=== PATIENT | female | born 1985 | race Caucasian/White ===

== ENCOUNTER 2016-11-05 13:05 | Emergency (ER) | payer SELFPAY ==
[~2016-11-05] VITALS: Ht 162.6 cm; Wt 61.4 kg
[2016-11-05 13:07] VITALS: BP 112/82; PULSE 133; RESP 24; TEMP 98.3; O2SAT 96
--- NOTE | 2016-11-05 14:46 | PD ---
HPI Chief Complaint: Pain: Acute or Chronic Time Seen by Provider: 14:46 Travel History International Travel<30 days: No Contact w/Intl Traveler<30days: No Traveled to known affect area: No History of Present Illness HPI 31-year-old female with history of lupus, IVDA presents to the ED for evaluation of 3 day history of right shoulder and scapular pain. Onset after recent overuse, unloading her car and working 2 jobs. Exacerbated by movement. She endorses limitations to range of motion stating that she has difficulties raising the arm beyond shoulder height secondary to weakness. She denies numbness, tingling of the arm. She denies previous injury to the area. Denies risk of , states that she is currently menstruating. Patient states that she just moved to the area from [place]. 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 Endorses allergy to Toradol. PFSH Past Medical History ?: Not LMP: 11/04/2016 Social History Alcohol Use: No Tobacco Use: Yes Substance Use: Yes Allergies-Medications (Allergen,Severity, Reaction): Coded Allergies: Toradol (Verified Allergy, Unknown, 11/05/16) Reported Meds & Prescriptions Reported Meds & Active Scripts Active Flexeril (Cyclobenzaprine HCl) 10 Mg Tab 10 Mg PO TID Ibuprofen 800 Mg Tab 800 Mg PO Q8H PRN Review of Systems Except as stated in HPI: all other systems reviewed are Neg Physical Exam Exam Limitations: Other: (crying, moaning) Narrative GENERAL: Well-nourished, well-developed dramatic, tearful white female in no acute distress. SKIN: Warm and dry. HEAD: Normocephalic. EYES: No scleral icterus. No injection or drainage. NECK: Supple, trachea midline. No JVD or lymphadenopathy. CARDIOVASCULAR: Regular rate and rhythm without murmurs, gallops, or rubs. RESPIRATORY: Breath sounds equal bilaterally. No accessory muscle use. GASTROINTESTINAL: Abdomen soft, non-tender, nondistended. MUSCULOSKELETAL: No cyanosis, or edema. FOCUSED RIGHT UPPER EXTREMITY EXAM: Tender to palpation along the superior spine of the scapula. Patient is able to abduct the right arm to 90. 5/5 deltoid, bicep, tricep strength. 2+ radial pulse. BACK: Nontender without obvious deformity. No CVA tenderness. Data Data Last Documented VS Vital Signs Date Time Temp Pulse Resp B/P Pulse Ox O2 Delivery O2 Flow Rate FiO2 11/05/16 13:07 98.3 133 24 112/82 96 Room Air Orders Scapula (11/05/16 14:46) Shoulder, Complete (>2vws) (11/05/16 14:46) Ice/Cold Pack (11/05/16 14:46) Acetamin-Hydrocod 325-5 Mg ([place] 5-325 (11/05/16 15:00) MDM Medical Decision Making Medical Screen Exam Complete: Yes Emergency Medical Condition: Yes Differential Diagnosis Musculoskeletal pain versus fracture versus dislocation versus malingering versus lupus flare versus other Narrative Course 31-year-old female with history of IVDA, lupus presents to the ED for evaluation of 3 day history of right scapular and shoulder pain. Onset after recent overuse of moving and working 2 jobs. Exacerbated by movement. No alleviating factors reported. Patient is quite dramatic, moaning loudly, tearful throughout the history taking. Physical exam reveals tenderness to palpation over the right scapula and shoulder, pain with range of motion, strength intact, sensation intact, good distal pulses. On each encounter with the patient I was accompanied by nurse Catherine Ace. Patient was administered 5 mg hydrocodone and ice pack. X-rays reveal no acute bony injury per radiology read. Review of the force reveals that the patient has received several narcotic prescriptions from multiple providers over the last few months. On recheck the patient appears to be sleeping, is lying quietly on the stretcher, ice pack in place. I discussed the results of the x-ray with the patient. I prescribed a short course of anti-inflammatories and muscle relaxers. As I discussed my plan for discharge the patient voiced multiple nonspecific complaints stating that she is dehydrated, needs fluids, her hands are swollen, her vision is impaired and she needs to be admitted to the hospital. The patient admitted she drove herself to the hospital despite this "vision impairment." I suspect this is malingering. She states that she has a primary care provider. I recommended that she follow up on an outpatient basis. She is stable and discharged home. Diagnosis Primary Impression: Musculoskeletal pain of right upper extremity Referrals: Primary Care Physician Patient Instructions: General Instructions, Musculoskeletal Pain (ED) Additional Instructions: Rest, hydrate. Resume normal, gentle activities as tolerated. No strenuous physical activities for the next few days. Take 800 mg ibuprofen as prescribed as needed for body aches. Take Flexeril as needed for muscle spasms. Do not drive or taking Flexeril. Applying ice or heat to areas with sore muscles may help to improve your patient. Do not apply ice/ heat for longer than 20 m/h. Follow-up with your primary care provider this week. Return to the ED for any urgent or emergent medical condition. Med/Other Pt SpecificInfo: Prescription(s) given Scripts Cyclobenzaprine (Flexeril)10 Mg Tab10 Mg PO TID #15 TAB Ref 0 Prov:Morena Foote MD 11/05/16 Ibuprofen 800 Mg [id number] Mg PO Q8H PRN (Pain/Inflammation) #15 TAB Ref 0 Prov:Morena Foote MD 11/05/16 Disposition: 01 DISCHARGE HOME Condition: Stable Yuki Melendrez Nov 05, 2016 14:46
[2016-11-05] MEDS ORDERED: ACETAMINOPHEN/HYDROcodone 325 MG/5 MG TAB PO ONE (15:00)
--- NOTE | 2016-11-05 16:06 | RADRPT ---
EXAM DATE/TIME: 11/05/2016 15:45 [facility] COMPARISON: No previous studies available for comparison. INDICATIONS : Fall. Right shoulder pain. MEDICAL HISTORY : Lupus. SURGICAL HISTORY : None. ENCOUNTER: Initial ACUITY: 1 day PAIN SCORE: 10/10 LOCATION: Right shoulder FINDINGS: Multiple view examination of the right shoulder demonstrates no evidence of fracture or dislocation. The glenohumeral and acromioclavicular joints are maintained. There is normal range of motion betwe en internal and external rotation. Bony mineralization is normal. CONCLUSION: No acute fracture. Jorje Abreu MD on November 05, 2016 at 16:04 Board Certified Radiologist. This report was verified electronically.
--- NOTE | 2016-11-05 16:12 | RADRPT ---
EXAM DATE/TIME: 11/05/2016 15:46 [facility] COMPARISON: No previous studies available for comparison. INDICATIONS : Fall. Right scapular pain. MEDICAL HISTORY : Lupus. SURGICAL HISTORY : None. ENCOUNTER: Initial ACUITY: 1 week PAIN SCORE: 10/10 LOCATION: Right posterior shoulder FINDINGS: Two view examination of the right scapula demonstrates no evidence of fracture. The glenohumeral and acromioclavicular joints are maintained. Bony mineralization is normal. CONCLUSION: No acute fracture. Jorje Abreu MD on November 05, 2016 at 16:10 Board Certified Radiologist. This report was verified electronically.
[2016-11-05] MEDS ORDERED: IBUP800T23 PO (16:37)
[2016-11-05] MEDS ORDERED: CYCL1TAB29 PO (16:37)
== END 2016-11-05 17:10 | disposition home or self-care (01) ==
LOC: NETRI 13:05
DX: M25.511 Pain in right shoulder (principal); Z72.0 Tobacco use; F19.10 Other psychoactive substance abuse, uncomplicated; X50.3XXA Overexertion from repetitive movements, initial encounter; Y93.89 Activity, other specified; Y92.89 Other specified places as the place of occurrence of the external cause; Y99.8 Other external cause status
CPT/HCPCS: 73010; 73030; 99283

== ENCOUNTER 2017-03-30 12:46 | Emergency (ER) | payer OTHER ==
[~2017-03-30] VITALS: Ht 162.6 cm; Wt 67.0 kg
[~2017-03-30 12:46] MED LIST: CYCL1TAB29 PO; IBUP800T23 PO
[2017-03-30 12:48] VITALS: BP 132/85; PULSE 103; RESP 18; TEMP 98.3; O2SAT 97
--- NOTE | 2017-03-30 12:55 | PD ---
Physical Exam Date Seen by Provider: Mar 30, 2017 Time Seen by Provider: 12:53 Data Data Last Documented VS Vital Signs Date Time Temp Pulse Resp B/P Pulse Ox O2 Delivery O2 Flow Rate FiO2 03/30/17 12:48 98.3 103 18 132/85 97 MDM Supervised Visit with [facility]: No Narrative Course 31 YO F, 9 weeks with complaint of intermittent abdominal cramping x 48 hours, constant and sharp since this AM. + N/V.--vaginal bleeding. Vitals reviewed. Patient seen in triage, awaiting bed placement. Yuki Melendrez Mar 30, 2017 12:55
--- NOTE | 2017-03-30 13:14 | PD ---
HPI Chief Complaint: Related Problem Time Seen by Provider: 13:05 Travel History International Travel<30 days: No Contact w/Intl Traveler<30days: No Traveled to known affect area: No History of Present Illness HPI This is a 31-year-old female who presents for evaluation of abdominal cramping. She is , last menstrual. Was January 18. She reports that throughout her she's had some cramping and nausea. She reports over the past 48 hours the cramping has been more persistent and worse. She has been having some sharp pelvic pains as well. She reports the last week she had 3 days of vaginal spotting, none since. Denies fevers or chills, flank pain, dysuria, increased urinary frequency or hesitancy. She is currently in the process of establishing care with [facility]. Her first appointment is April 14. She has no other complaints at this time. PFSH Past Medical History ?: Social History Alcohol Use: No Tobacco Use: Yes Substance Use: Yes Allergies-Medications (Allergen,Severity, Reaction): Coded Allergies: Tramadol (Verified Allergy, Unknown, 03/30/17) Vancomycin (Verified Allergy, Unknown, 03/30/17) Reported Meds & Prescriptions Reported Meds & Active Scripts Active Flexeril (Cyclobenzaprine HCl) 10 Mg Tab 10 Mg PO TID Ibuprofen 800 Mg Tab 800 Mg PO Q8H PRN Review of Systems Except as stated in HPI: all other systems reviewed are Neg Physical Exam Narrative GENERAL: Well-developed well-nourished female in no acute distress SKIN: Warm and dry. HEAD: Atraumatic. Normocephalic. EYES: Pupils equal and round. No scleral icterus. No injection or drainage. ENT: No nasal bleeding or discharge. Mucous membranes pink and moist. NECK: Trachea midline. No JVD. CARDIOVASCULAR: Regular rate and rhythm. No murmur appreciated. RESPIRATORY: No accessory muscle use. Clear to auscultation. Breath sounds equal bilaterally. GASTROINTESTINAL: Abdomen soft, tenderness to palpation in the lower quadrants without guarding. No CVA tenderness. MUSCULOSKELETAL: No obvious deformities. No edema. NEUROLOGICAL: Awake and alert. No obvious cranial nerve deficits. Motor grossly within normal limits. Normal speech. PSYCHIATRIC: Appropriate mood and affect; insight and judgment normal. Data Data Last Documented VS Vital Signs Date Time Temp Pulse Resp B/P Pulse Ox O2 Delivery O2 Flow Rate FiO2 03/30/17 17:07 77 15 118/67 98 03/30/17 14:20 Room Air 03/30/17 12:48 98.3 Orders Beta Hcg (Quant/Titer) (03/30/17 13:10) Complete Blood Count With Diff (03/30/17 13:10) Comprehensive Metabolic Panel (03/30/17 13:10) Complete Rh (03/30/17 13:10) Us Pelvis (Ques Pr/Ect)W Trans (03/30/17 ) Urinalysis - C+S If Indicated (03/30/17 13:10) Ed Urine Pregnancytest Poc (03/30/17 13:10) Iv Access Insert/Monitor (03/30/17 13:10) Ondansetron Inj (Zofran Inj) (03/30/17 13:15) Rhogam Only (03/30/17 14:09) Labs Laboratory Tests Test 03/30/17 03/30/17 13:30 15:07 White Blood Count 9.2 TH/MM3 Red Blood Count 4.48 MIL/MM3 Hemoglobin 13.1 GM/DL Hematocrit 38.5 % Mean Corpuscular Volume 85.9 FL Mean Corpuscular Hemoglobin 29.3 PG Mean Corpuscular Hemoglobin 34.0 % Concent Red Cell Distribution Width 14.2 % Platelet Count 339 TH/MM3 Mean Platelet Volume 7.7 FL Neutrophils (%) (Auto) 65.3 % Lymphocytes (%) (Auto) 22.5 % Monocytes (%) (Auto) 7.4 % Eosinophils (%) (Auto) 4.2 % Basophils (%) (Auto) 0.6 % Neutrophils # (Auto) 6.0 TH/MM3 Lymphocytes # (Auto) 2.1 TH/MM3 Monocytes # (Auto) 0.7 TH/MM3 Eosinophils # (Auto) 0.4 TH/MM3 Basophils # (Auto) 0.1 TH/MM3 CBC Comment DIFF FINAL Differential Comment Urine Color YELLOW Urine Turbidity CLEAR Urine pH 6.5 Urine Specific [place] 1.013 Urine Protein NEG mg/dL Urine Glucose (UA) NEG mg/dL Urine Ketones NEG mg/dL Urine Occult Blood NEG Urine Nitrite NEG Urine Bilirubin NEG Urine Urobilinogen LESS THAN 2.0 MG/DL Urine Leukocyte Esterase NEG Urine WBC LESS THAN 1 /hpf Urine Transitional Epithelial <1 /hpf Cells Urine Mucus FEW /lpf Microscopic Urinalysis Comment CULT NOT INDICATED Sodium Level 138 MEQ/L Potassium Level 3.8 MEQ/L Chloride Level 106 MEQ/L Carbon Dioxide Level 24.6 MEQ/L Anion Gap 7 MEQ/L Blood Urea Nitrogen 7 MG/DL Creatinine 0.66 MG/DL Estimat Glomerular Filtration 106 ML/MIN Rate Random Glucose 100 MG/DL Calcium Level 9.1 MG/DL Total Bilirubin 0.3 MG/DL Aspartate Amino Transf 19 U/L (AST/SGOT) Alanine Aminotransferase 22 U/L (ALT/SGPT) Alkaline Phosphatase 61 U/L Total Protein 7.5 GM/DL Albumin 3.9 GM/DL Human Chorionic Gonadotropin, 07683 MIU/ML Quant Blood Type O NEGATIVE Rho(D) Type NEGATIVE Blood Bank Comment MDM Medical Decision Making Medical Screen Exam Complete: Yes Emergency Medical Condition: Yes Medical Record Reviewed: Yes Differential Diagnosis Intrauterine , ectopic , cystitis, tubo-ovarian abscess, pelvic inflammatory disease, ovarian cyst, ovarian torsion Narrative Course This is a 31-year-old female whose last menstrual period was January 18 presents with sharp pelvic pain/cramping over the past 48 hours. Plan is for basic lab work, pelvic ultrasound. The patient also had vaginal spotting for 3 days last week. Her blood type is O - and therefore RhoGAM was administered. The patient's lab work is normal. Her ultrasound confirms a normal-appearing and she heard . She was given a copy of her ultrasound results. She is stable for discharge, outpatient follow-up. Diagnosis Primary Impression: Intrauterine Referrals: [facility] Additional Instructions: Follow-up with [facility] service as already scheduled return for any emergent medical conditions. Med/Other Pt SpecificInfo: No Change to Meds Disposition: 01 DISCHARGE HOME Condition: Stable Sal Meza Mar 30, 2017 13:14 Sal Meza Mar 30, 2017 13:14
[2017-03-30] MEDS ORDERED: ONDANSETRON HCL 4 MG/2 ML VIAL IV PUSH ONE (13:15)
[2017-03-30 13:44] LABS: BASOPHIL # 0.1 TH/MM3 (0-0.2); BASOPHIL % 0.6 % (0.0-2.0); EOSINOPHIL # 0.4 TH/MM3 (0-0.4); EOSINOPHIL % 4.2 % (0.0-4.0); HEMATOCRIT 38.5 % (35.0-46.0); HEMO FLAGS DIFF FINAL; LYMPH % 22.5 % (9.0-44.0); LYMPHOCYTE # 2.1 TH/MM3 (1.0-4.8); MEAN CELL VOLUME 85.9 FL (80.0-100.0); MEAN CORPUSCULAR HEMOGLOBIN 29.3 PG (27.0-34.0); MONO % 7.4 % (0.0-8.0); NEUT % 65.3 % (16.0-70.0); PLATELET COUNT 339 TH/MM3 (150-450); RED BLOOD COUNT 4.48 MIL/MM3 (4.00-5.30); RED CELL DISTRIBUTION WIDTH 14.2 % (11.6-17.2); WHITE BLOOD COUNT 9.2 TH/MM3 (4.0-11.0)
[2017-03-30 13:51] LABS: BLOOD, URINE NEG (NEG); GLUCOSE,URINE NEG (NEG); KETONE, URINE NEG (NEG); MUCUS URINE FEW /lpf (OCC); NITRITE,URINE NEG (NEG); PH, URINE 6.5 (5.0-8.5); TRANSITIONAL EPI CELLS, URINE <1 /hpf; URINE COLOR YELLOW (YELLW/STRAW)
[2017-03-30 13:52] LABS: COMMENT (UR) CULT NOT INDICATED; CULTURE IF INDICATED CULT NOT INDICATED
[2017-03-30 14:03] LABS: ALT (GPT) 22 U/L (10-53); ANION GAP 7 MEQ/L (5-15); AST (GOT) 19 U/L (15-37); BICARBONATE 24.6 MEQ/L (21.0-32.0); BLOOD UREA NITROGEN 7 MG/DL (7-18); CHLORIDE 106 MEQ/L (98-107); GLOMERULAR FILTRATION RATE 106 ML/MIN (>89); POTASSIUM 3.8 MEQ/L (3.5-5.1); SODIUM (NA) 138 MEQ/L (136-145)
[2017-03-30 14:20] VITALS: BP 102/61; PULSE 95; RESP 18; O2SAT 98
[2017-03-30 14:24] LABS: ALKALINE PHOSPHATASE 61 U/L (45-117); BETA HCG QUANT 94162 MIU/ML (0-5); TOTAL BILIRUBIN ADULT 0.3 MG/DL (0.2-1.0)
--- NOTE | 2017-03-30 15:41 | RADRPT ---
EXAM DATE/TIME: 03/30/2017 14:53 [facility] COMPARISON: No previous studies available for comparison. INDICATIONS : Pelvic pain. LAB(S): Beta-hC,162 MEDICAL HISTORY : . SURGICAL HISTORY : None. ENCOUNTER: Initial ACUITY: 2 days PAIN SCORE: 8/10 LOCATION: Bilateral pelvis MEASUREMENTS: UTERUS: 11.3 x 6.2 x 5.6 cm ENDOMETRIAL STRIPE: >20 mm RIGHT OVARY: 2.4 x 1.8 x 1.5 cm LEFT OVARY: 3.3 x 2.8 x 2.2 cm CROWN RUMP LENGTH: 2.1 cm = 8 WKS 5 DAYS FHR: 180 BPM FINDINGS: UTERUS: Intrauterine gestation with crown-rump length of 20.9 mm yielding estimated gestational age of 8 week s 5 days. cardiac activity is detected at 180 beats per minute. Small mobility and cysts in the cervix. RIGHT OVARY: Ovary contains no mass or significant cystic lesion. LEFT OVARY: 15 mm cyst involving left ovary MISCELLANEOUS: No free fluid. CONCLUSION: Intrauterine gestation. Mathew Vieyra MD on March 30, 2017 at 15:35 Board Certified Radiologist. This report was verified electronically.
[2017-03-30 17:07] VITALS: BP 118/67
== END 2017-03-30 17:23 | disposition home or self-care (01) ==
LOC: NEPD 12:46
DX: O26.899 Other specified pregnancy related conditions, unspecified trimester (principal); R10.2 Pelvic and perineal pain; O26.859 Spotting complicating pregnancy, unspecified trimester; O36.0990 Maternal care for other rhesus isoimmunization, unspecified trimester, not applicable or unspecified; Z72.0 Tobacco use; Z3A.00 Weeks of gestation of pregnancy not specified
CPT/HCPCS: 76700; 76817; 80053; 81001; 84702; 84703; 85025; 86901; 90384; 96374; 99285; J2405; J2790

== ENCOUNTER → 2017-04-22 | Outpatient (CLI) | payer OTHER ==
[~2017-04-22] MED LIST changes: -CYCL1TAB29 PO; -IBUP800T23 PO; +LEVO75TA3 PO; +TUMS500C CHEW; +ZANT150T2 PO; +ZITHTAB PO
== END ==
LOC: HPND 13:18
PROVIDERS: ATTEND Obstetrics & Gynecology
DX: O99.282 Endocrine, nutritional and metabolic diseases complicating pregnancy, second trimester (principal); M32.9 Systemic lupus erythematosus, unspecified
CPT/HCPCS: 76801

== ENCOUNTER 2017-05-17 11:06 | Emergency (ER) | payer OTHER ==
[~2017-05-17] VITALS: Ht 162.6 cm; Wt 67.1 kg
[~2017-05-17 11:06] MED LIST changes: +PREN1CAP7 PO
[2017-05-17 11:11] VITALS: BP 110/66; PULSE 92; RESP 18; TEMP 98.2; O2SAT 100
[2017-05-17] MEDS ORDERED: SODIUM CHLOR 0.9% 1000 ML INJ 1,000 ML IV SCH (11:34)
[2017-05-17] MEDS ORDERED: ZOLO25TA PO (11:36)
[2017-05-17] MEDS ORDERED: SODIUM CHLORIDE 0.9% FLUSH 10 ML FLUSH IV FLUSH PRN (11:45)
[2017-05-17] MEDS ORDERED: ONDANSETRON HCL 4 MG/2 ML VIAL IV PUSH ONE (12:00)
[2017-05-17 12:07] LABS: BASOPHIL % 0.6 % (0.0-2.0); EOSINOPHIL # 0.3 TH/MM3 (0-0.4); EOSINOPHIL % 3.5 % (0.0-4.0); HEMATOCRIT 35.4 % (35.0-46.0); HEMO FLAGS DIFF FINAL; LYMPH % 19.2 % (9.0-44.0); LYMPHOCYTE # 1.5 TH/MM3 (1.0-4.8); MEAN CELL VOLUME 87.6 FL (80.0-100.0); MEAN CORPUSCULAR HEMOGLOBIN 29.9 PG (27.0-34.0); MEAN CORPUSCULAR HGB CONC 34.2 % (32.0-36.0); MONO % 2.6 % (0.0-8.0); NEUT % 74.1 % (16.0-70.0); PLATELET COUNT 265 TH/MM3 (150-450); RED BLOOD COUNT 4.04 MIL/MM3 (4.00-5.30); RED CELL DISTRIBUTION WIDTH 15.7 % (11.6-17.2)
[2017-05-17 12:10] VITALS: RESP 18; O2SAT 99
[2017-05-17 12:10] LABS: BLOOD, URINE NEG (NEG); KETONE, URINE NEG (NEG); NITRITE,URINE NEG (NEG); PH, URINE 7.5 (5.0-8.5)
[2017-05-17 12:11] LABS: GLUCOSE,URINE 1000 OR GREATER mg/dL (NEG); METHOD OF COLLECTION CLEAN CATCH; URINE COLOR YELLOW (YELLW/STRAW)
[2017-05-17 12:14] LABS: COMMENT (UR) CULT NOT INDICATED; CULTURE IF INDICATED CULT NOT INDICATED; RBC, URINE 0-3 /hpf (0-3); SQUAMOUS EPITHELIAL CELL URINE 0-5 /hpf (0-5); WBC, URINE 0-2 /hpf (0-5)
[2017-05-17 12:16] LABS: CHLORIDE 108 MEQ/L (98-107); POTASSIUM 4.7 MEQ/L (3.5-5.1); SODIUM (NA) 137 MEQ/L (136-145)
[2017-05-17 12:20] LABS: ANION GAP 8 MEQ/L (5-15); BICARBONATE 21.3 MEQ/L (21.0-32.0)
[2017-05-17 12:21] LABS: BLOOD UREA NITROGEN 6 MG/DL (7-18)
[2017-05-17 12:23] LABS: ALT (GPT) 18 U/L (10-53); AST (GOT) 35 U/L (15-37); GLOMERULAR FILTRATION RATE 131 ML/MIN (>89)
[2017-05-17 12:25] LABS: TOTAL BILIRUBIN ADULT 0.5 MG/DL (0.2-1.0)
[2017-05-17 12:26] LABS: ALKALINE PHOSPHATASE 43 U/L (45-117)
--- NOTE | 2017-05-17 12:29 | PD ---
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 Hua, she has had approximately 3 days of lower abdominal pain and dysuria. The patient is known to be 17 weeks . She reports vomiting numerous times this morning associated with nausea. The pain comes and goes. A subjective fever is reported. The patient notes that less than one week prior she underwent a cervical biopsy to rule out cervical cancer. PFSH Past Medical History Depression: Yes Cardiovascular Problems: Yes (HEART VALVE DISEASE) Diminished Hearing: No Thyroid Disease: Yes Influenza Vaccination: Yes ?: LMP: 01/22/17 Social History Alcohol Use: No Tobacco Use: No Substance Use: No Allergies-Medications (Allergen,Severity, Reaction): Coded Allergies: Tramadol (Verified Allergy, Unknown, 05/17/17) Vancomycin (Verified Allergy, Unknown, 05/17/17) Reported Meds & Prescriptions Reported Meds & Active Scripts Active Levothyroxine (Levothyroxine Sodium) 75 Mcg Tab 75 Mcg PO DAILY Citranatal [place] ( W/O Vit A W/ Fe Fumar) 27-1-260 Mg Cap Reported Zoloft (Sertraline HCl) 25 Mg Tab 25 Mg PO DAILY Review of Systems Except as stated in HPI: all other systems reviewed are Neg General / Constitutional: No: Fever Physical Exam Narrative GENERAL: 31 yo F, NAD, WNWD SKIN: Warm and dry. HEAD: Atraumatic. Normocephalic. EYES: Pupils equal and round. No scleral icterus. No injection or drainage. ENT: No nasal bleeding or discharge. Mucous membranes pink and moist. NECK: Trachea midline. No JVD. CARDIOVASCULAR: Regular rate and rhythm. RESPIRATORY: No accessory muscle use. Clear to auscultation. Breath sounds equal bilaterally. GASTROINTESTINAL: +TTP suprapubic abdomen. No RLQ TTP. Soft. Gravid abdomen. MUSCULOSKELETAL: Extremities without clubbing, cyanosis, or edema. No obvious deformities. NEUROLOGICAL: Awake and alert. No obvious cranial nerve deficits. Motor grossly within normal limits. Five out of 5 muscle strength in the arms and legs. Normal speech. PSYCHIATRIC: Appropriate mood and affect; insight and judgment normal. Data Data Last Documented VS Vital Signs Date Time Temp Pulse Resp B/P Pulse Ox O2 Delivery O2 Flow Rate FiO2 05/17/17 12:10 18 99 Room Air 05/17/17 11:11 98.2 92 110/66 Orders Complete Blood Count With Diff (05/17/17 11:34) Comprehensive Metabolic Panel (05/17/17 11:34) Lipase (05/17/17 11:34) Urinalysis - C+S If Indicated (05/17/17 11:34) Iv Access Insert/Monitor (05/17/17 11:34) Ecg Monitoring (05/17/17 11:34) Oximetry (05/17/17 11:34) Sodium Chlor 0.9% 1000 Ml Inj (Ns 1000 M (05/17/17 11:34) Sodium Chloride 0.9% Flush (Ns Flush) (05/17/17 11:45) Ed Poc Ultrasound (05/17/17 11:34) Ondansetron Inj (Zofran Inj) (05/17/17 12:00) Labs Laboratory Tests Test 05/17/17 11:45 White Blood Count 8.0 TH/MM3 Red Blood Count 4.04 MIL/MM3 Hemoglobin 12.1 GM/DL Hematocrit 35.4 % Mean Corpuscular Volume 87.6 FL Mean Corpuscular Hemoglobin 29.9 PG Mean Corpuscular Hemoglobin 34.2 % Concent Red Cell Distribution Width 15.7 % Platelet Count 265 TH/MM3 Mean Platelet Volume 7.6 FL Neutrophils (%) (Auto) 74.1 % Lymphocytes (%) (Auto) 19.2 % Monocytes (%) (Auto) 2.6 % Eosinophils (%) (Auto) 3.5 % Basophils (%) (Auto) 0.6 % Neutrophils # (Auto) 6.0 TH/MM3 Lymphocytes # (Auto) 1.5 TH/MM3 Monocytes # (Auto) 0.2 TH/MM3 Eosinophils # (Auto) 0.3 TH/MM3 Basophils # (Auto) 0.0 TH/MM3 CBC Comment DIFF FINAL Differential Comment Urine Collection Type CLEAN CATCH Urine Color YELLOW Urine Turbidity CLEAR Urine pH 7.5 Urine Specific [place] 1.020 Urine Protein NEG mg/dL Urine Glucose (UA) 1000 OR GREATER mg/dL Urine Ketones NEG mg/dL Urine Occult Blood NEG Urine Nitrite NEG Urine Bilirubin NEG Urine Leukocyte Esterase NEG Urine RBC 0-3 /hpf Urine WBC 0-2 /hpf Urine Squamous Epithelial 0-5 /hpf Cells Microscopic Urinalysis Comment CULT NOT INDICATED Sodium Level 137 MEQ/L Potassium Level 4.7 MEQ/L Chloride Level 108 MEQ/L Carbon Dioxide Level 21.3 MEQ/L Anion Gap 8 MEQ/L Blood Urea Nitrogen 6 MG/DL Creatinine 0.55 MG/DL Estimat Glomerular Filtration 131 ML/MIN Rate Random Glucose 75 MG/DL Calcium Level 8.7 MG/DL Total Bilirubin 0.5 MG/DL Aspartate Amino Transf 35 U/L (AST/SGOT) Alanine Aminotransferase 18 U/L (ALT/SGPT) Alkaline Phosphatase 43 U/L Total Protein 7.0 GM/DL Albumin 3.4 GM/DL Lipase 106 U/L [facility] Medical Decision Making Medical Screen Exam Complete: Yes Emergency Medical Condition: Yes Medical Record Reviewed: Yes Differential Diagnosis IUP, UTI, ectopic , ov torsion, appendicitis, TOA, cervicitis, BV, Trichomoniasis, ov cyst, hernia, mittelschmerz, pain from menstruation Narrative Course CBC & BMP Diagram 05/17/17 11:45 LFTs and lipase normal Urinalysis no UTI Transabdominal ultrasound reveals intrauterine with heart rate of approximately 160, which patient was quite relieved to observe The patient is resting comfortably and feels better, is alert and in no distress. The patients results and examination findings were discussed. The repeat examination is unremarkable and benign. The history, exam, diagnostic testing, and current condition do not suggest any significant pathology to warrant further testing, continued ED treatment, admission, or surgical evaluation at this point. The vital signs have been stable. The patient does not have uncontrollable pain, intractable vomiting, or other significant symptoms. The patient's condition is stable and appropriate for discharge. The patient will pursue further outpatient evaluation with a primary care physician or other designated or consulting physician as indicated in the discharge instructions. The patient expressed understanding and was agreeable with this plan. Diagnosis Primary Impression: Intrauterine Additional Impression: Abdominal pain Qualified Code: R10.9 - Abdominal pain, unspecified abdominal location Referrals: Osmar Hua MD 2 days Additional Instructions: PLEASE RETURN TO ER IF FEVER, VOMITING OR PAIN PERSISTS. PLEASE BE SURE TO FOLLOW UP WITH DR HUA WITHIN THE NEXT TWO DAYS. PLEASE DO NOT HESITATE TO RETURN TO ER FOR ANY REASON YOU CONSIDER NECESSARY. Disposition: 01 DISCHARGE HOME Condition: Stable Manjinder Belcher MD May 17, 2017 12:29
[2017-05-17 12:56] VITALS: BP 99/58; PULSE 70; RESP 16; O2SAT 100
[2017-06-28] MEDS ORDERED: ZITHTAB PO (16:16)
[2017-07-19] MEDS ORDERED: MOME17I EACH NARE (10:51)
[2017-07-19] MEDS ORDERED: ZOLO25TA PO (10:53)
== END 2017-05-17 13:20 | disposition home or self-care (01) ==
LOC: PHED 11:06
DX: O26.892 Other specified pregnancy related conditions, second trimester (principal); O21.9 Vomiting of pregnancy, unspecified; Z3A.17 17 weeks gestation of pregnancy
CPT/HCPCS: 80053; 81001; 83690; 85025; 96361; 96374; 99285; J2405; J7030

== ENCOUNTER → 2017-05-26 | Outpatient (CLI) | payer OTHER ==
[~2017-05-26] MED LIST changes: +MOME17I EACH NARE; -PREN1CAP7 PO; -TUMS500C CHEW; -ZANT150T2 PO; +ZOLO25TA PO
== END ==
LOC: HPND 07:54
PROVIDERS: ATTEND Obstetrics & Gynecology
DX: O99.282 Endocrine, nutritional and metabolic diseases complicating pregnancy, second trimester (principal); O99.89 Other specified diseases and conditions complicating pregnancy, childbirth and the puerperium; O26.892 Other specified pregnancy related conditions, second trimester; M32.9 Systemic lupus erythematosus, unspecified; Z3A.17 17 weeks gestation of pregnancy
CPT/HCPCS: 76811

== ENCOUNTER → 2017-06-09 | Outpatient (CLI) | payer OTHER | LOC: HPND 09:06 | PROVIDERS: ATTEND Obstetrics & Gynecology | DX: O99.89 Other specified diseases and conditions complicating pregnancy, childbirth and the puerperium (principal); M32.9 Systemic lupus erythematosus, unspecified; O99.280 Endocrine, nutritional and metabolic diseases complicating pregnancy, unspecified trimester; Z3A.00 Weeks of gestation of pregnancy not specified | CPT/HCPCS: 76815 ==

== ENCOUNTER → 2017-06-22 | Outpatient (CLI) | payer OTHER | LOC: HPND 13:38 | PROVIDERS: ATTEND Obstetrics & Gynecology | DX: O99.282 Endocrine, nutritional and metabolic diseases complicating pregnancy, second trimester (principal); O99.89 Other specified diseases and conditions complicating pregnancy, childbirth and the puerperium; M32.9 Systemic lupus erythematosus, unspecified | CPT/HCPCS: 76816 ==

== ENCOUNTER → 2017-07-19 | Outpatient (CLI) | payer OTHER | LOC: HPND 08:58 | PROVIDERS: ATTEND Obstetrics & Gynecology | DX: O99.282 Endocrine, nutritional and metabolic diseases complicating pregnancy, second trimester (principal); O99.89 Other specified diseases and conditions complicating pregnancy, childbirth and the puerperium; M32.9 Systemic lupus erythematosus, unspecified | CPT/HCPCS: 76816 ==

== ENCOUNTER → 2017-08-11 | Outpatient (CLI) | payer OTHER | LOC: HPND 11:12 | PROVIDERS: ATTEND Obstetrics & Gynecology | DX: O35.8XX0 Maternal care for other (suspected) fetal abnormality and damage, not applicable or unspecified (principal); O99.89 Other specified diseases and conditions complicating pregnancy, childbirth and the puerperium; M32.9 Systemic lupus erythematosus, unspecified; Z3A.28 28 weeks gestation of pregnancy | CPT/HCPCS: 76816 ==

== ENCOUNTER → 2017-08-18 | Outpatient (CLI) | payer OTHER ==
[~2017-08-18] MED LIST changes: -ZITHTAB PO
== END ==
LOC: HPND 08:14
PROVIDERS: ATTEND Obstetrics & Gynecology
DX: O35.0XX0 Maternal care for (suspected) central nervous system malformation in fetus, not applicable or unspecified (principal); O35.8XX0 Maternal care for other (suspected) fetal abnormality and damage, not applicable or unspecified
CPT/HCPCS: 36415; 59000; 76815; 76946; 86850; 86900; 86901; 90384; 96372; J2790

== ENCOUNTER 2017-08-24 12:28 | Emergency (ER) | payer OTHER ==
--- NOTE | 2017-08-24 14:18 | PD ---
Allergies-Medications (Allergen,Severity, Reaction): Coded Allergies: tramadol (Unverified Allergy, Unknown, 07/19/17) vancomycin (Unverified Allergy, Unknown, 07/19/17) Home Meds Active Scripts Sertraline (Zoloft) 25 Mg Tab, 50 MG PO DAILY for Anxiety, #30 TAB 0 Refills Prov:Osmar Hua MD 08/19/17 Levothyroxine (Levothyroxine) 75 Mcg Tab, 75 MCG PO DAILY for Thyroid, #30 TAB 3 Refills Prov:Osmar Hua MD 08/19/17 Mometasone Nasal [place] (Nasonex Nasal [place]) 50 Mcg/Act Naspr, 2 SPRAY EACH NARE DAILY for Allergy Management, #1 BOTTLE 0 Refills Prov:Osmar Hua MD 07/19/17 W/O Vit A W/ Fe Fumar (Citranatal [place]) 27-1-260 Mg Cap Prov:Osmar Hua MD 04/14/17 Physical Exam Narrative GENERAL: Well-nourished, well-developed patient. SKIN: Warm and dry. HEAD: Normocephalic and atraumatic. EYES: No scleral icterus. No injection or drainage. ENT: No nasal drainage noted. Mucous membranes pink. Airway patent. NECK: Supple, trachea midline. No JVD. CARDIOVASCULAR: Regular rate and rhythm without murmurs, gallops, or rubs. RESPIRATORY: Breath sounds equal bilaterally. No accessory muscle use. BREASTS: Bilateral exam showed no masses , no retractions, no nipple discharge. ABDOMEN/GI: Abdomen soft, non-tender, bowel sounds present, no rebound, no guarding Gravid to [-] weeks size Fundal Height: [-] GENITOURINARY: External Genitalia: intact and normal in appearance BUS glands: [-] Cervix: [-] Dilatation: [-] Effacement: [-] Station: [-] Presentation: [-] Membranes: [intact or ruptured] Uterine Contractions: [-] FHT's: Category: [-] Baseline: [-] Reactive: [-] Variability: [-] Decels: [-] EXTREMITIES: No cyanosis or edema. BACK: Nontender without obvious deformity. No CVA tenderness. NEUROLOGICAL: Awake and alert. Motor and sensory grossly within normal limits. Five out of 5 muscle strength in all muscle groups. Normal speech. Data Data Orders Orders Vital Signs (Adult) .ON ADMISSION (08/24/17 14:14) ^ Labor Status (08/24/17 14:14) Urinalysis - C+S If Indicated (08/24/17 14:14) ^ Non Stress Test (08/24/17 14:14) ^ Hydration (08/24/17 14:14) Fibronectin (08/24/17 14:14) Wet Prep Profile (08/24/17 14:14) Gc And Chlamydia Pcr (08/24/17 14:14) Kiran Weldon MD R1 Aug 24, 2017 14:18
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
[2017-08-24 16:33] LABS: BLOOD, URINE NEG (NEG); COMMENT (UR) CULT NOT INDICATED; CULTURE IF INDICATED CULT NOT INDICATED; GLUCOSE,URINE NEG (NEG); KETONE, URINE NEG (NEG); MUCUS URINE FEW /lpf (OCC); NITRITE,URINE NEG (NEG); PH, URINE 6.5 (5.0-8.5); SQUAMOUS EPITHELIAL CELL URINE <1 /hpf (0-5); URINE COLOR YELLOW (YELLW/STRAW)
[2017-08-24 18:35] LABS: CHLAMYDIA PCR NOT DETECTED (NOT DETECT); NEISSERIA PCR NOT DETECTED (NOT DETECT)
== END 2017-08-24 17:21 | disposition home or self-care (01) ==
LOC: HOBED 12:28
DX: O26.893 Other specified pregnancy related conditions, third trimester (principal); N89.8 Other specified noninflammatory disorders of vagina; M54.9 Dorsalgia, unspecified; R10.30 Lower abdominal pain, unspecified; M32.9 Systemic lupus erythematosus, unspecified; E03.9 Hypothyroidism, unspecified; Z88.5 Allergy status to narcotic agent; Z79.899 Other long term (current) drug therapy; Z3A.30 30 weeks gestation of pregnancy
CPT/HCPCS: 81001; 82731; 87210; 87491; 87591; 99283

== ENCOUNTER 2017-09-04 18:26 | Emergency (ER) | payer OTHER ==
--- NOTE | 2017-09-04 18:55 | PD ---
HPI Chief Complaint Leaking Date Seen: Sep 04, 2017 Time Seen: 18:51 Travel History International Travel<30 Days: No Contact w/Intl Traveler<30Days: No Known Affected Area: No History of Present Illness HPI Primigravida at 32 weeks gestation who reports that for thoroughly suctioned and she notes that her underpants were wet. She wasn't sure if she had leaked urine. No bleeding or contractions. No vaginal discharge History Past Medical History Narrative Medical The patient has lupus Prior hospitalization in September 2016 for bacterial endocarditis complicating pneumonia Obstetric History Obstetric History [facility]igravida [facility], the fetus of this is affected by hydrocephalus and aortic stenosis. The plan is for her to deliver at [facility]. Past Surgical History Narrative Surgical None Family History Family History: Negative Social History Alcohol Use: No Tobacco Use: No Substance Abuse: No Allergies-Medications (Allergen,Severity, Reaction): Coded Allergies: tramadol (Unverified Allergy, Unknown, 07/19/17) vancomycin (Unverified Allergy, Unknown, 07/19/17) Home Meds Active Scripts Sertraline (Zoloft) 25 Mg Tab, 50 MG PO DAILY for Anxiety, #30 TAB 0 Refills Prov:Osmar Hua MD 08/19/17 Levothyroxine (Levothyroxine) 75 Mcg Tab, 75 MCG PO DAILY for Thyroid, #30 TAB 3 Refills Prov:Osmar Hua MD 08/19/17 Mometasone Nasal [place] (Nasonex Nasal [place]) 50 Mcg/Act Naspr, 2 SPRAY EACH NARE DAILY for Allergy Management, #1 BOTTLE 0 Refills Prov:Osmar Hua MD 07/19/17 W/O Vit A W/ Fe Fumar (Citranatal [place]) 27-1-260 Mg Cap Prov:Osmar Hua MD 04/14/17 Review of Systems Except as stated in HPI: all other systems reviewed are Neg Physical Exam Narrative GENERAL: Well-nourished, well-developed patient. SKIN: Warm and dry. HEAD: Normocephalic and atraumatic. EYES: No scleral icterus. No injection or drainage. ENT: No nasal drainage noted. Mucous membranes pink. Airway patent. NECK: Supple, trachea midline. No JVD. CARDIOVASCULAR: Regular rate and rhythm without murmurs, gallops, or rubs. RESPIRATORY: Breath sounds equal bilaterally. No accessory muscle use. BREASTS: Bilateral exam showed no masses , no retractions, no nipple discharge. ABDOMEN/GI: Abdomen soft, non-tender, bowel sounds present, no rebound, no guarding Gravid to [-] weeks size Fundal Height: [-] GENITOURINARY: External Genitalia: intact and normal in appearance BUS glands: [-] Cervix: [-] Dilatation: [-] Effacement: [-] Station: [-] Presentation: [-] Membranes: [intact or ruptured] Uterine Contractions: [-] FHT's: Category: [1-] Baseline: [-] Reactive: [-Yes] Variability: [-] Decels: [-] EXTREMITIES: No cyanosis or edema. BACK: Nontender without obvious deformity. No CVA tenderness. NEUROLOGICAL: Awake and alert. Motor and sensory grossly within normal limits. Five out of 5 muscle strength in all muscle groups. Normal speech. MDM Medical Record Reviewed: Yes (yes) Narrative Course / MDM Assessment: 32 week intrauterine , no evidence of ruptured membranes Plan: Follow for routine care Diagnosis Diagnosis: Primary Impression: 32 week prematurity Additional Impression: no evidence of ruptured membranes Disposition: 01 DISCHARGE HOME Condition: Good Finn Atkinson MD Sep 04, 2017 18:55
== END 2017-09-04 19:22 | disposition home or self-care (01) ==
LOC: HOBED 18:26
DX: Z03.71 Encounter for suspected problem with amniotic cavity and membrane ruled out (principal); Z86.2 Personal history of diseases of the blood and blood-forming organs and certain disorders involving the immune mechanism; Z3A.32 32 weeks gestation of pregnancy
CPT/HCPCS: 84112; 99284

== ENCOUNTER 2017-09-22 07:04 | Emergency (ER) | payer OTHER ==
[2017-09-22 07:29] VITALS: BP 111/62; PULSE 89
[2017-09-22] MEDS ORDERED: LACTATED RINGER'S 1000 ML INJ 1,000 ML IV SCH (07:37)
--- NOTE | 2017-09-22 07:40 | PD ---
HPI Chief Complaint vomiting Date Seen: Sep 22, 2017 Time Seen: 07:40 Travel History International Travel<30 Days: No Contact w/Intl Traveler<30Days: No History of Present Illness HPI Patient is a 32 year old at 34 and 5/7 weeks, who to OB ED for nausea, vomiting, and feeling of unwell since early this morning. [facility] Care with [facility]. She denies leakage of fluid, vaginal bleeding, and contractions. She feels baby moving regularly. She denies FAUSTIN/fever/sick contacts/SOB/calf pain/dizziness/ seeing spots. History Past Medical History Narrative Medical degenerative heart disease Obstetric History Obstetric History Fetus evaluated at [facility] for aortic stenosis, hydrocephalus, plan is to monitor Past Surgical History Narrative Surgical None Family History Family History: Negative Social History Alcohol Use: No Tobacco Use: No Substance Abuse: No Allergies-Medications (Allergen,Severity, Reaction): Coded Allergies: tramadol (Unverified Allergy, Unknown, 07/19/17) vancomycin (Unverified Allergy, Unknown, 07/19/17) Home Meds Active Scripts Sertraline (Zoloft) 25 Mg Tab, 50 MG PO DAILY for Anxiety, #30 TAB 0 Refills Prov:Osmar Hua MD 08/19/17 Levothyroxine (Levothyroxine) 75 Mcg Tab, 75 MCG PO DAILY for Thyroid, #30 TAB 3 Refills Prov:Osmar Hua MD 08/19/17 Mometasone Nasal [place] (Nasonex Nasal [place]) 50 Mcg/Act Naspr, 2 SPRAY EACH NARE DAILY for Allergy Management, #1 BOTTLE 0 Refills Prov:Osmar Hua MD 07/19/17 W/O Vit A W/ Fe Fumar (Citranatal [place]) 27-1-260 Mg Cap Prov:Osmar Hua MD 04/14/17 Review of Systems Except as stated in HPI: all other systems reviewed are Neg Physical Exam Narrative GENERAL: Well-nourished, well-developed patient. SKIN: Warm and dry. HEAD: Normocephalic and atraumatic. EYES: No scleral icterus. No injection or drainage. ENT: No nasal drainage noted. Mucous membranes pink and moist, no tonsillar exudates. Airway patent. NECK: Supple, trachea midline. No JVD. No LAD. CARDIOVASCULAR: Regular rate and rhythm without murmurs, gallops, or rubs. RESPIRATORY: Breath sounds equal bilaterally. No accessory muscle use. Lungs clear to auscultation. ABDOMEN/GI: Abdomen soft, non-tender, bowel sounds present, no rebound, no guarding. Gravid, not oleksandr. GENITOURINARY: deferred FHT's: Category: 1 Baseline: 130s Reactive: 150s Variability: mod Decels: absent EXTREMITIES: No cyanosis or edema. BACK: Nontender without obvious deformity. No CVA tenderness. NEUROLOGICAL: Awake and alert. Motor and sensory grossly within normal limits. Five out of 5 muscle strength in all muscle groups. Normal speech. Data Data Vital Signs Reviewed: Yes Orders Orders Vital Signs (Adult) .ON ADMISSION (09/22/17 07:37) ^ Labor Status (09/22/17 07:37) ^ Non Stress Test (09/22/17 07:37) ^ Hydration (09/22/17 07:37) Lactated Ringer's 1000 Ml Inj (Lr 1000 M (09/22/17 07:37) Ondansetron Inj (Zofran Inj) (09/22/17 07:45) Vital Signs (Adult) .ON ADMISSION (09/22/17 07:37) ^ Labor Status (09/22/17 07:37) Urinalysis - C+S If Indicated (09/22/17 07:37) Bedside Glucose DIANNE.CSUGAR (09/22/17 07:37) ^ Non Stress Test (09/22/17 07:37) Cbc No Diff, Includes Plts (09/22/17 07:37) Comprehensive Metabolic Panel (09/22/17 07:37) Ob/Psych Drug Screen, Urine (09/22/17 07:37) MDM Medical Record Reviewed: Yes Plan 32 year old at 34 and 5/7 weeks, who to OB ED for nausea, vomiting, and feeling of unwell since early this morning. [facility]. Intrauterine : Category 1 tracing CTX resolved with hydration, likely related to dehydration Monitor heart tones Routine care Nausea and vomiting Likely causing dehydration Etiology likely viral gastroenteritis, labs negative for signs of infection, UA wnl 1 Liter LR bolus CBC, CMP, UA negative Zofran 4mg IV x 1 helped sx, given 4mg SL script #15 Counseled on hydration, reasons to return to clinic SDW Dr. Brinda Mckeon Diagnosis Diagnosis: Primary Impression: 34 weeks gestation of Additional Impressions: Nausea and vomiting due to hyperglycemia Intrauterine Disposition: 01 DISCHARGE HOME Condition: Stable Patient Instructions: Nausea and Vomiting in (ED) Parvin Khan MD R2 Sep 22, 2017 07:40
[2017-09-22] MEDS ORDERED: ONDANSETRON HCL 4 MG/2 ML VIAL IV PUSH ONE (07:45)
--- NOTE | 2017-09-22 08:03 | PD ---
History of Present Illness History of Present Illness NST report Indications: IUP at 34 weeks, hydrocephalus, aortic stenosis, nausea /vomiting/dehydration NST: heart rate with baseline in the 120s, moderate long-term variability , no decelerations, and good accelerations noted with a category 1 heart rate tracing and reactive NST Final diagnosis: IUP at 34 weeks, hydrocephalus, aortic stenosis, nausea /vomiting/dehydration, reassuring testing Follow-up as clinically indicated Pearl Mckeon MD Sep 22, 2017 08:03
[2017-09-22 08:04] LABS: HEMATOCRIT 35.5 % (35.0-46.0); HEMOGLOBIN 12.5 GM/DL (11.6-15.3); MEAN CELL VOLUME 92.6 FL (80.0-100.0); MEAN CORPUSCULAR HEMOGLOBIN 32.6 PG (27.0-34.0); MEAN CORPUSCULAR HGB CONC 35.2 % (32.0-36.0); MEAN PLATELET VOLUME 8.2 FL (7.0-11.0); PLATELET COUNT 206 TH/MM3 (150-450); RED BLOOD COUNT 3.83 MIL/MM3 (4.00-5.30); RED CELL DISTRIBUTION WIDTH 13.3 % (11.6-17.2); WHITE BLOOD COUNT 8.1 TH/MM3 (4.0-11.0)
[2017-09-22 08:12] LABS: BILIRUBIN, URINE NEG (NEG); BLOOD, URINE NEG (NEG); GLUCOSE,URINE NEG (NEG); KETONE, URINE NEG (NEG); NITRITE,URINE NEG (NEG); PH, URINE 6.5 (5.0-8.5); URINE COLOR LIGHT-YELLOW (YELLW/STRAW); URINE LEUKOCYTE ESTERASE NEG (NEG)
[2017-09-22 08:20] LABS: BACTERIA, URINE FEW /hpf; MUCUS URINE OCC /lpf (OCC); SQUAMOUS EPITHELIAL CELL URINE > 8 /hpf (0-5); WBC, URINE 0-2 /hpf (0-5)
[2017-09-22 08:22] LABS: ALBUMIN 2.8 GM/DL (3.4-5.0); ALT (GPT) 16 U/L (10-53); AST (GOT) 17 U/L (15-37); BICARBONATE 23.2 MEQ/L (21.0-32.0); BLOOD UREA NITROGEN 4 MG/DL (7-18); CALCIUM 8.6 MG/DL (8.5-10.1); CHLORIDE 109 MEQ/L (98-107); CREATININE 0.48 MG/DL (0.50-1.00); GLOMERULAR FILTRATION RATE 152 ML/MIN (>89); GLUCOSE,RANDOM 76 MG/DL (74-106); SODIUM (NA) 140 MEQ/L (136-145)
[2017-09-22 08:24] LABS: ALKALINE PHOSPHATASE 130 U/L (45-117); TOTAL BILIRUBIN ADULT 0.2 MG/DL (0.2-1.0); TOTAL PROTEIN 6.4 GM/DL (6.4-8.2)
== END 2017-09-22 09:45 | disposition home or self-care (01) ==
LOC: HOBED 07:04
DX: O21.2 Late vomiting of pregnancy (principal); O99.810 Abnormal glucose complicating pregnancy; F41.9 Anxiety disorder, unspecified; Z3A.34 34 weeks gestation of pregnancy; Z88.1 Allergy status to other antibiotic agents; Z88.6 Allergy status to analgesic agent; Z86.79 Personal history of other diseases of the circulatory system; Z79.899 Other long term (current) drug therapy
CPT/HCPCS: 80053; 80307; 81001; 85027; 96361; 96374; 99284; G0481; J2405; J7120